=== PATIENT | female | born 1980 | race Caucasian/White ===

== ENCOUNTER 2017-01-27 17:23 | Inpatient (IN) | payer OTHER ==
[~2017-01-27] VITALS: Ht 172.7 cm; Wt 132.4 kg
--- NOTE | ~2017-01-27 | PN ---
Unit #: [id number] #: [id number] Patient: LE KEARNEY [id number] [facility] [address] [place] [address] [id number] I MR#: [id number] NAME: LE KEARNEY ROOM: [facility] Age: 36 Sex: F Admission Date: 01/27/2017 : 1980 Attending Physician: Zeb Spangler M.D. Admitting Physician: Zeb Spangler M.D. Primary Care Physician: Primary Care Physician Mackenzie WIGGINS PROGRESS NOTES DATE 02/02/2017 DISCUSSION Le is tolerating her medications with no problems. Her mood is a little better with a brighter range of affect but she has no spontaneous speech except when asked questions and tends to stay away from peers and staff. I believe that she is reaching her baseline level of behavior at this point and is tolerating her medications with no problem. ASSESSMENT Schizoaffective disorder. PLAN We will schedule discharge for tomorrow with a return to follow up through [facility] in [place], [place]. Dictated by... Migdalia Millan/yadira TD: 02/05/2017 22:41 JOB #: [id number] [facility] PROGRESS NOTES Page 1 of 1 X Zeb Spangler MD PROGRESS NOTE
--- NOTE | ~2017-01-27 | PN ---
Unit #: [id number] #: [id number] Patient: LE KEARNEY [id number] [facility] [address] [place] [address] [id number] I MR#: [id number] NAME: LE KEARNEY ROOM: [facility] Age: 36 Sex: F Admission Date: 01/27/2017 : 1980 Attending Physician: Zeb Spangler M.D. Admitting Physician: Zeb Spangler M.D. Primary Care Physician: Primary Care Physician Mackenzie WIGGINS PROGRESS NOTES DATE 02/01/2017 DISCUSSION Le continues to be isolative from peers and staff. She is taking her medications with any adverse side effects. She is alert and fully oriented. Her memory and concentration are fair. Her thought processes are still bothered by both auditory and visual hallucinations with ongoing suicidal ideation. ASSESSMENT Schizoaffective disorder. PLAN Continue current treatment plan. Dictated by... Migdalia Millan/ritu TD: 02/05/2017 06:17 JOB #: [id number] [facility] PROGRESS NOTES Page 1 of 1 X Zeb Spangler MD X PROGRESS NOTE
--- NOTE | ~2017-01-27 | DS ---
Unit #: [id number] #: [id number] Patient: LE KEARNEY [id number] [place] [address] [id number] MR#: [id number] NAME: LE KEARNEY ROOM: [facility] Age: 36 Sex: F Admission Date: 01/27/2017 : 1980 Discharge Date: 02/03/2017 Attending Physician: Zeb Spangler M.D. Primary Care Physician: Primary Care Physician No DISCHARGE SUMMARY REASON FOR ADMISSION Le is a 36-year-old woman, who initially presented to her local hospital complaining of increased psychosis, paranoia, and suicidal ideation. Her family reported that she had been increasing distressed and difficult to control in the home setting. She was admitted for stabilization. DIAGNOSTIC STUDIES Laboratory data, please see hospital chart. HOSPITAL COURSE Le was admitted and placed on suicide precautions. There was no evidence of drug or alcohol use. Depakote and Risperdal were restarted with an increase in Risperdal to 3 mg twice daily. She participated minimally in psychotherapy groups and activities, tending to stay isolative in her room and generally not interacting with peers or staff. She did report improvement in her mood; however, on the day of discharge, she was, once again, able to contract for safety. DISCHARGE DIAGNOSES Lowell I Schizoaffective disorder, bipolar type vs schizophrenia, paranoid type. Lowell II No diagnosis. Lowell III None acute. Lowell IV Lowell V INSTRUCTIONS TO PATIENT Follow up with [facility] in [place], [place]. DISCHARGE MEDICATIONS 1. Depakote ER 500 mg twice daily for mood stability 2. Risperdal 3 mg twice daily for psychosis CONDITION AT DISCHARGE Improved. PROGNOSIS Easd-hc-ocvm. DIET AND ACTIVITY Per primary care doctor. Unit #: [id number] #: [id number] Patient: LE KEARNEY Dictated by... Migdalia Millan/ritu TD: 02/10/2017 13:11 JOB #: [id number] DISCHARGE SUMMARY Page 1 of 1 X Zeb Spangler MD X DISCHARGE SUMMARY
--- NOTE | ~2017-01-27 | PN ---
Unit #: [id number] #: [id number] Patient: LE KEARNEY [id number] [facility] [address] [place] [address] [id number] I MR#: [id number] NAME: LE KEARNEY ROOM: [facility] Age: 36 Sex: F Admission Date: 01/27/2017 : 1980 Attending Physician: Zeb Spangler M.D. Admitting Physician: Zeb Spangler M.D. Primary Care Physician: Primary Care Physician Mackenzie WIGGINS PROGRESS NOTES DATE 01/31/2017 DISCUSSION Le is quiet and withdrawn this morning, staying in her room for much of the time. She is alert and fully oriented. Her memory and concentration are fair. Her thought processes are goal-directed with some auditory and visual hallucinations. ASSESSMENT Schizoaffective disorder. PLAN Continue current treatment plan. Dictated by... Migdalia Millan/ritu TD: 02/05/2017 05:15 JOB #: [id number] [facility] PROGRESS NOTES Page 1 of 1 X Zeb Spangler MD PROGRESS NOTE
--- NOTE | ~2017-01-27 | HP ---
Unit #: [id number] #: [id number] Patient: LE KEARNEY [id number] [place] [address] [id number] I MR#: [id number] NAME: LE KEARNEY ROOM: [facility] Age: 36 Sex: F Admission Date: 01/27/2017 : 1980 Attending Physician: Zeb Spangler M.D. Admitting Physician: Zeb Spangler M.D. Primary Care Physician: Primary Care Physician No HISTORY AND PHYSICAL HISTORY OF PRESENT ILLNESS Le is a 36 year old admitted to [facility] with psychotic behavior. She thinks she is being spied on by the "boogie man." PAST MEDICAL HISTORY 1. Morbid obesity. 2. COPD. 3. PCOS. PAST SURGICAL HISTORY 1. Bilateral knees. 2. x2. ALLERGIES Codeine. SOCIAL HISTORY Smokes 2-1/2 packs per day. Drinks alcohol on occasion. Denies illicit drug use. FAMILY HISTORY Medically noncontributory. REVIEW OF SYSTEMS CONSTITUTIONAL: No fever or chills. HEENT: Denies any sore throat, ear pain or runny nose. CARDIOVASCULAR: Denies chest pain, irregular heart rhythm or palpitations. CHEST: Denies shortness of breath or cough. No hemoptysis. GASTROINTESTINAL: Denies nausea, vomiting, diarrhea or chronic constipation. ENDOCRINE: Denies history of increased thirst or urination. No recent significant weight loss or gain. GENITOURINARY: Denies dysuria, frequency, or hematuria. SKIN: Denies any rashes. HEMATOLOGIC: Denies history of increased bleeding or bruising. MUSCULOSKELETAL: Denies any hot, swollen joints. No generalized muscle pain. NEUROLOGIC: Denies problems with vision or speech. No frequent, severe headaches. No numbness, tingling or weakness in any extremities. Denies loss of bladder or bowel control. CURRENT MEDICATIONS 1. Risperdal 3 mg b.i.d. Unit #: [id number] #: [id number] Patient: LE KEARNEY 2. Nicotine patch 21 mg daily. 3. Depakote ER 500 mg b.i.d. 4. Milk of Magnesia p.r.n. 5. Maalox p.r.n. 6. Tylenol p.r.n. PHYSICAL EXAMINATION GENERAL: Alert, morbidly obese, in no apparent distress. VITAL SIGNS: Blood pressure 122/76, heart rate 92, respirations 16, temperature 98.6. WEIGHT: 192. HEIGHT: 5 feet 8 inches. SKIN: Warm and dry without rash or lesion. HEENT: Normocephalic. TMs not viewed. Oral and nasal passages clear. Conjunctivae clear. PERRLA. EOMs intact. Significant exophthalmus noted. NECK: Supple without lymphadenopathy or thyromegaly. HEART: Regular rate and rhythm without murmur. LUNGS: Clear. ABDOMEN: Soft, nontender. : Not done. EXTREMITIES: No evidence of cyanosis, clubbing or edema. Moves all without focal deficit. NEUROLOGICAL: Grossly within normal limits. Cranial Nerves: II: Visual ashley are intact. III, IV AND : Extraocular movements are intact. Pupils are equal, round and reactive to light. V: Facial sensation is grossly normal. VII: Facial movements and expression are normal. VIII: Auditory acuity grossly intact. IX, X: Uvula is midline. Phonation is normal. XI: Patient shrugs shoulders and turns head normally. XII: Tongue protrudes in the midline. Sensory and Motor Function: Sensory and motor sensation is grossly normal. Motor: moves all extremities well. Coordination: Gait is normal. Deep Tendon Reflexes: Intact. IMPRESSION Psychiatric admission. RECOMMENDATIONS PSYCHIATRIC: Per psychiatrist. MEDICAL: See no contraindication to participate in facility's activities. MEDICAL PROGNOSIS Good. MEDICAL CONDITION Stable. Dictated by... Margo Zelaya P.A.-C. for Migdalia Herrera/yadira TD: 01/28/2017 18:48 Unit #: [id number] #: [id number] Patient: LE KEARNEY JOB #: [id number] HISTORY AND PHYSICAL Page 1 of 1 X Margo Zelaya HISTORY AND PHYSICAL
--- NOTE | ~2017-01-27 | PN ---
Unit #: [id number] #: [id number] Patient: LE KEARNEY [id number] [facility] [address] [place] [address] [id number] I MR#: [id number] NAME: LE KEARNEY ROOM: [facility] Age: 36 Sex: F Admission Date: 01/27/2017 : 1980 Attending Physician: Zeb Spangler M.D. Admitting Physician: Zeb Spangler M.D. Primary Care Physician: Primary Care Physician Mackenzie WIGGINS PROGRESS NOTES DATE 01/29/2017 DISCUSSION Le continues to tolerate her increase medicines with no significant adverse side effects. She remains isolated from peers and staff reports she rarely comes out for anything but meals. She is alert and fully oriented and is generally quiet but reports ongoing suicidal ideation and auditory hallucinations. ASSESSMENT Schizoaffective disorder versus schizophrenia with major depression. PLAN Continue current treatment plan. Dictated by... Migdalia Millan/tonya TD: 02/05/2017 03:08 JOB #: [id number] [facility] PROGRESS NOTES Page 1 of 1 X Zeb Spangler MD X PROGRESS NOTE
== END 2017-02-03 10:45 | disposition home or self-care (01) | DRG 885 ==
LOC: P2L 22:39
DX: F25.9 Schizoaffective disorder, unspecified (principal); Z68.41 Body mass index [BMI] 40.0-44.9, adult; J44.9 Chronic obstructive pulmonary disease, unspecified; E66.01 Morbid (severe) obesity due to excess calories; F17.210 Nicotine dependence, cigarettes, uncomplicated
CPT/HCPCS: 80164; 84703